=== PATIENT | male | born 1985 | race Caucasian/White ===

== ENCOUNTER → 2021-06-14 14:40 | Outpatient (BNVA) | payer MEDICAID, SELFPAY | PROVIDERS: Referring Provider Family Medicine Adult Medicine; Visit Provider Orthopaedic Surgery | DX: S52.92XA Unspecified fracture of left forearm, initial encounter for closed fracture (principal); X58.XXXA Exposure to other specified factors, initial encounter | CPT/HCPCS: 73110 ==

== ENCOUNTER 2021-06-14 15:59 | Outpatient (CLI) | payer MEDICAID, SELFPAY | END 2021-06-14 16:00 | disposition home or self-care (01) | LOC: SPT 16:00 | PROVIDERS: Visit Provider Orthopaedic Surgery | DX: Z98.890 Other specified postprocedural states (principal); S52.292D Other fracture of shaft of left ulna, subsequent encounter for closed fracture with routine healing; S52.92XD Unspecified fracture of left forearm, subsequent encounter for closed fracture with routine healing; X58.XXXD Exposure to other specified factors, subsequent encounter | CPT/HCPCS: 97760; L3982; L4361 ==

== ENCOUNTER → 2021-07-11 10:49 | Outpatient (BNVA) | payer MEDICAID, SELFPAY | PROVIDERS: Visit Provider Orthopaedic Surgery | DX: S52.92XD Unspecified fracture of left forearm, subsequent encounter for closed fracture with routine healing (principal); S82.201D Unspecified fracture of shaft of right tibia, subsequent encounter for closed fracture with routine healing; S82.401D Unspecified fracture of shaft of right fibula, subsequent encounter for closed fracture with routine healing; V89.2XXD Person injured in unspecified motor-vehicle accident, traffic, subsequent encounter; S52.202D Unspecified fracture of shaft of left ulna, subsequent encounter for closed fracture with routine healing | CPT/HCPCS: 73110; 73590 ==

== ENCOUNTER → 2022-03-07 13:45 | Outpatient (BNVA) | payer BC, MEDICAID, SELFPAY | PROVIDERS: PCP Family Medicine Adult Medicine; Visit Provider Specialist | DX: G43.711 Chronic migraine without aura, intractable, with status migrainosus (principal); F07.81 Postconcussional syndrome; S02.10 Unspecified fracture of base of skull; V89.2XXS Person injured in unspecified motor-vehicle accident, traffic, sequela | CPT/HCPCS: 99204 ==

== ENCOUNTER → 2022-04-18 08:29 | Outpatient (BNVA) | payer BC, MEDICAID, SELFPAY | PROVIDERS: PCP Family Medicine Adult Medicine; Visit Provider Specialist | DX: G43.711 Chronic migraine without aura, intractable, with status migrainosus (principal); R25.1 Tremor, unspecified; F07.81 Postconcussional syndrome; S02.10 Unspecified fracture of base of skull; Y93.9 Activity, unspecified | CPT/HCPCS: 99213; 99214 ==

== ENCOUNTER → 2022-06-25 18:20 | Outpatient (BNVA) | payer BC, MEDICAID, SELFPAY | PROVIDERS: PCP Family Medicine Adult Medicine; Visit Provider Family Medicine | DX: J02.9 Acute pharyngitis, unspecified (principal) | CPT/HCPCS: 87880 ==